=== PATIENT | male | born 1950 | race Caucasian/White ===

== ENCOUNTER 2017-09-20 17:31 | Emergency (ER) | payer MEDICARE ==
[2017-09-20 17:50] VITALS: TEMP 97.9
--- NOTE | 2017-09-20 19:01 | ED PDOC ---
HPI: Male Pain Time Seen by Provider: 09/20/17 17:58 Chief Complaint (Nursing): Male Genitourinary Chief Complaint (Provider): Male Genitourinary History Per: Patient History/Exam Limitations: no limitations Onset/Duration Of Symptoms: Hrs (x5 for hematuria), Other (cough has been persistent since end july) Current Symptoms Are (Timing): Still Present Additional Complaint(s): 66 year old male, with a history of an enlarged prostate surgery in 2002, presents to the emergency department for blood in his urine which he first noted at 14:00 today. He states that prior to arrival, his urine was almost entirely blood, but denies any clots within the blood, dysuria, or frequency. The patient also denies a fever, chills, any abdominal or back pain, or bleeding anywhere else. He also states that he has had a productive cough with clear sputum since the end of July. When he last saw his doctor, he reports that he was prescribed Azithromycin, and also has been taking Mucinex, Tylenol PM, and Dayquil with no improvement. PMD: provider in [place] Past Medical History Reviewed: Historical Data, Nursing Documentation, Vital Signs Vital Signs: Last Vital Signs Temp 97.9 F 09/20/17 17:48 Pulse 61 09/20/17 17:48 Resp 19 09/20/17 17:48 BP 136/84 09/20/17 17:48 Pulse Ox 100 09/20/17 17:48 - Medical History PMH: No Chronic Diseases - Surgical History Other surgeries: Enlarged prostate surgery - Family History Family History: States: Unknown Family Hx - Social History Current smoker - smoking cessation education provided: No Alcohol: Social - Immunization History Hx Tetanus Toxoid Vaccination: No Hx Influenza Vaccination: No Hx Pneumococcal Vaccination: No - Allergies Allergies/Adverse Reactions: Allergies Allergy/AdvReac Type Severity Reaction Status Date / Time No Known Allergies Allergy Verified 09/20/17 17:50 Review of Systems ROS Statement: Except As Marked, All Systems Reviewed And Found Negative Constitutional: Negative for: Fever, Chills Respiratory: Positive for: Cough (productive), Sputum (clear) Gastrointestinal: Negative for: Abdominal Pain Genitourinary Male: Positive for: Hematuria (no clots). Negative for: Dysuria, Frequency Musculoskeletal: Negative for: Back Pain Physical Exam - Reviewed Nursing Documentation Reviewed: Yes Vital Signs Reviewed: Yes - Physical Exam Appears: Positive for: Non-toxic, No Acute Distress Head Exam: Positive for: ATRAUMATIC, NORMOCEPHALIC Skin: Positive for: Warm, Dry Eye Exam: Positive for: EOMI, PERRL ENT: Negative for: Pharyngeal Erythema, Tonsillar Exudate Neck: Positive for: Painless ROM, Supple Cardiovascular/Chest: Positive for: Regular Rate, Rhythm. Negative for: Murmur Respiratory: Positive for: Normal Breath Sounds (clear bilaterally). Negative for: Rales, Wheezing, Respiratory Distress Gastrointestinal/Abdominal: Positive for: Soft. Negative for: Tenderness, Mass , Guarding, Rebound Back: Negative for: L CVA Tenderness, R CVA Tenderness Extremity: Positive for: Normal ROM. Negative for: Deformity Lymphatic: Negative for: Adenopathy Neurologic/Psych: Positive for: Alert. Negative for: Motor/Sensory Deficits - Laboratory Results Result Diagrams: 09/20/17 18:50 09/20/17 18:50 - ECG O2 Sat by Pulse Oximetry: 100 (RA) Pulse Ox Interpretation: Normal Medical Decision Making Medical Decision Making: Initial Impression: Hematuria and cough DDx includes but is not limited to: UTI, cystitis, renal polyp, malignancy, pneumonia, bronchitis, reactive airway disease Time: 18:40 Initial Plan: --Type and screen --CMP --Creatine phosphokinase --CBC with differential --PT and PTT --Chest XR --Urine culture --Urinalysis Time: 19:27 Chest XR --No acute disease Labs with no emergently significant abnormalities. DW pt findings and plan of care. Scribe Attestation: Documented by Sneha Richardson, acting as a scribe for Alina Ramey MD Provider Scribe Attestation: All medical entries made by the Scribe were at my direction and personally dictated by me. I have reviewed the chart and agree that the record accurately reflects my personal performance of the history, physical exam, medical decision making, and the department course for this patient. I have also personally directed, reviewed, and agree with the discharge instructions and disposition. Disposition - Clinical Impression Clinical Impression: Hematuria - Disposition Referrals: Roger Woodruff MD [Staff Provider] - 09/21/17 (CALL TOMORROW TO SETUP FOLLOW UP APPOINTMENT WITHIN A WEEK) Disposition: Routine/Home Disposition Time: 20:00 Condition: IMPROVED Instructions: Blood in the Urine (Hematuria) in Adults
[2017-09-20 19:03] LABS: BASO % 0.9 % (0.0-2.0); EOS # 0.1 K/uL (0.0-0.7); LYMPH # 1.7 K/uL (1.0-4.3); LYMPH % 37.3 % (20.0-40.0); MEAN CELL VOLUME 89.6 fl (80.0-94.0); MEAN CORPUSCULAR HEMOGLOBIN 30.7 pg (27.0-31.0); MEAN CORPUSCULAR HGB CONC 34.3 g/dL (33.0-37.0); MEAN PLATELET VOLUME 8.2 fl (7.2-11.7); MONO # 0.5 K/uL (0.0-0.8); NEUT # 2.2 K/uL (1.8-7.0); NEUT % 48.8 % (50.0-75.0); NRBC % 0.2 % (0.0-0.0); RBC 4.89 Mil/uL (4.40-5.90); RED CELL DISTRIBUTION WIDTH 13.2 % (11.5-14.5); WHITE BLOOD COUNT 4.5 K/uL (4.8-10.8)
[2017-09-20 19:12] LABS: ALB/GLOB RATIO 1.1 (1.0-2.1); ALBUMIN 3.9 g/dL (3.5-5.0); ALT/SGPT 35 U/L (21-72); AST/SGOT 26 U/L (17-59); BLOOD UREA NITROGEN 16 mg/dl (9-20); CALCIUM 8.9 mg/dL (8.4-10.2); GFR AFRICAN-AMERICAN > 60; GFR NON-AFRICAN AMERICAN > 60
[2017-09-20 19:16] LABS: URINE BILIRUBIN NEGATIVE (NEGATIVE); URINE CLARITY CLEAR (Clear); URINE COLOR STRAW (YELLOW); URINE GLUCOSE (UA) NEG (Normal); URINE LEUKOCYTE ESTERASE NEG Leu/uL (Negative); URINE PROTEIN NEGATIVE (NEGATIVE); URINE UROBILINOGEN 0.2-1.0 mg/dL (0.2-1.0)
[2017-09-20 19:21] LABS: URINE BLOOD SMALL (NEGATIVE)
[2017-09-20 19:31] LABS: INR 1.1 (0.9-1.2); PARTIAL THROMBOPLASTIN TIME 31.8 Seconds (25.6-37.1); PROTHROMBIN TIME 11.7 Seconds (9.8-13.1)
[2017-09-20 20:04] VITALS: BP 123/67; PULSE 58; O2SAT 95
[2017-09-20 20:07] VITALS: RESP 18
--- NOTE | 2017-09-21 08:41 | RAD ---
HISTORY: cough COMPARISON: No prior. TECHNIQUE: Chest PA and lateral FINDINGS: LUNGS: No active pulmonary disease. PLEURA: No significant pleural effusion identified. No pneumothorax apparent. CARDIOVASCULAR: Normal. OSSEOUS STRUCTURES: Degenerative changes. VISUALIZED UPPER ABDOMEN: Normal. OTHER FINDINGS: None. IMPRESSION: No active disease.
== END 2017-09-20 20:06 | disposition home or self-care (01) ==
LOC: H.ER 17:31
DX: R31.9 Hematuria, unspecified (principal)